=== PATIENT | female | born 1985 | race Two or more races ===

== ENCOUNTER 2021-12-13 07:30 | Observation (INO) | payer MEDICAID ==
[2021-12-13] MEDS ORDERED: PREN-96 PO (09:30)
[2021-12-13] MEDS ORDERED: ASPI1TAB20 PO (09:30)
== END 2021-12-13 10:21 | disposition home or self-care (01) ==
LOC: LDRP 08:06 → UNDOADMOB 08:08 → UNDODISOB 10:21
PROVIDERS: ADMIT Obstetrics & Gynecology; ATTEND Obstetrics & Gynecology
DX: O24.419 Gestational diabetes mellitus in pregnancy, unspecified control (principal); Z3A.30 30 weeks gestation of pregnancy; Z79.82 Long term (current) use of aspirin
CPT/HCPCS: 59025; 76818; 81002; 82948; 82962; 94760; G0378

== ENCOUNTER 2021-12-20 07:29 | Observation (INO) | payer MEDICAID ==
[~2021-12-20 07:29] MED LIST: ASPI1TAB20 PO; PREN-96 PO
== END 2021-12-20 09:49 | disposition home or self-care (01) ==
LOC: LDRP 08:06 → UNDOADMOB 08:46 → LDRP 08:46 → UNDODISOB 09:49
PROVIDERS: ADMIT Obstetrics & Gynecology; ATTEND Obstetrics & Gynecology
DX: O24.419 Gestational diabetes mellitus in pregnancy, unspecified control (principal); O62.9 Abnormality of forces of labor, unspecified; O26.893 Other specified pregnancy related conditions, third trimester; R10.30 Lower abdominal pain, unspecified; H53.8 Other visual disturbances; Z3A.31 31 weeks gestation of pregnancy
CPT/HCPCS: 59025; 76818; 81002; 82948; 82962; 94760; G0378

== ENCOUNTER 2021-12-27 08:17 | Observation (INO) | payer MEDICAID | END 2021-12-27 09:52 | disposition home or self-care (01) | LOC: UNDOADMOB 08:17 → LDRP 08:17 | PROVIDERS: ADMIT Obstetrics & Gynecology Obstetrics; ATTEND Obstetrics & Gynecology Obstetrics | DX: O24.419 Gestational diabetes mellitus in pregnancy, unspecified control (principal); Z3A.32 32 weeks gestation of pregnancy | CPT/HCPCS: 59025; 76818; 81002; 82948; 82962; 94760; G0378 ==

== ENCOUNTER 2022-01-03 08:05 | Observation (INO) | payer MEDICAID ==
[~2022-01-03] VITALS: Ht 157.5 cm; Wt 67.6 kg
== END 2022-01-03 09:32 | disposition home or self-care (01) ==
LOC: LDRP 08:05 → UNDOADMOB 08:05 → LDRP 08:41 → UNDODISOB 09:32
PROVIDERS: ADMIT Obstetrics & Gynecology; ATTEND Obstetrics & Gynecology
DX: O24.419 Gestational diabetes mellitus in pregnancy, unspecified control (principal); Z3A.33 33 weeks gestation of pregnancy
CPT/HCPCS: 59025; 76818; 81002; 82948; 82962; 94760; G0378

== ENCOUNTER 2022-01-10 08:28 | Observation (INO) | payer MEDICAID ==
[~2022-01-10] VITALS: Ht 157.5 cm; Wt 67.6 kg
== END 2022-01-10 09:58 | disposition home or self-care (01) ==
LOC: LDRP 08:28 → UNDOADMOB 08:28 → LDRP 08:31 → UNDODISOB 09:58
PROVIDERS: ADMIT Obstetrics & Gynecology; ATTEND Obstetrics & Gynecology
DX: O24.419 Gestational diabetes mellitus in pregnancy, unspecified control (principal); Z3A.34 34 weeks gestation of pregnancy
CPT/HCPCS: 59025; 76818; 81002; 82962; 94760; G0378

== ENCOUNTER 2022-01-17 08:12 | Observation (INO) | payer MEDICAID | END 2022-01-17 10:07 | disposition home or self-care (01) | LOC: LDRP 08:12 → UNDOADMOB 08:12 → LDRP 08:56 → UNDODISOB 10:07 | PROVIDERS: ADMIT Obstetrics & Gynecology; ATTEND Obstetrics & Gynecology | DX: O24.419 Gestational diabetes mellitus in pregnancy, unspecified control (principal); Z3A.35 35 weeks gestation of pregnancy; Z79.82 Long term (current) use of aspirin | CPT/HCPCS: 59025; 76818; 81002; 82948; 82962; G0378 ==

== ENCOUNTER 2022-01-24 08:05 | Observation (INO) | payer MEDICAID | END 2022-01-24 09:45 | disposition home or self-care (01) | LOC: LDRP 08:05 → UNDOADMOB 08:05 → LDRP 08:38 → UNDODISOB 09:45 | PROVIDERS: ADMIT Obstetrics & Gynecology; ATTEND Obstetrics & Gynecology | DX: O24.419 Gestational diabetes mellitus in pregnancy, unspecified control (principal); Z3A.36 36 weeks gestation of pregnancy | CPT/HCPCS: 59025; 76818; 81002; 82948; 82962; 94760; G0378 ==

== ENCOUNTER 2022-01-31 08:06 | Observation (INO) | payer MEDICAID | END 2022-01-31 09:22 | disposition home or self-care (01) | LOC: LDRP 08:06 → UNDOADMOB 08:06 → LDRP 08:31 → UNDODISOB 09:22 | PROVIDERS: ADMIT Obstetrics & Gynecology; ATTEND Obstetrics & Gynecology | DX: O24.419 Gestational diabetes mellitus in pregnancy, unspecified control (principal); Z3A.37 37 weeks gestation of pregnancy | CPT/HCPCS: 59025; 76818; 81002; 82948; 82962; 94760; G0378 ==

== ENCOUNTER 2022-02-07 08:09 | Observation (INO) | payer MEDICAID | END 2022-02-07 09:18 | disposition home or self-care (01) | LOC: LDRP 08:09 → UNDOADMOB 08:09 → LDRP 08:44 → UNDODISOB 09:18 | PROVIDERS: ADMIT Obstetrics & Gynecology; ATTEND Obstetrics & Gynecology | DX: O24.419 Gestational diabetes mellitus in pregnancy, unspecified control (principal); Z3A.38 38 weeks gestation of pregnancy; Z91.040 Latex allergy status | CPT/HCPCS: 59025; 76818; 81002; 82948; 82962; 94760; G0378 ==

== ENCOUNTER 2022-02-08 15:00 | Inpatient (IN) | payer MEDICAID ==
[~2022-02-08] VITALS: Ht 154.9 cm; Wt 69.4 kg
[2022-02-08 18:38] LABS: Basophils # (auto) 0.1 10 ^3/uL (0-0.2); Basophils % (auto) 0.9 % (0.0-2.0); Eosinophils # (auto) 0 10 ^3/uL (0-0.8); Eosinophils % (auto) 0.6 % (0.0-7.0); Hematocrit 37.9 % (36.0-46.0); Hemoglobin 12.4 g/dL (12.2-16.2); Lymphocytes # (auto) 1.4 10 ^3/uL (0.4-5.4); Lymphocytes % (auto) 18.6 % (10.0-50.0); Mean Corpuscular Hemoglobin 27.6 pg (28.0-32.0); Mean Corpuscular Hgb Conc. 32.7 g/dL (32.0-36.0); Mean Corpuscular Volume 84.3 fL (80.0-100.0); Monocytes # (auto) 0.5 10 ^3/uL (0-1.3); Neutrophils # (auto) 5.7 10 ^3/uL (1.6-8.6); Neutrophils % (auto) 73.9 % (37.0-80.0); Nucleated Red Blood Cells % 0.1 %; Red Cell Distribution Width 14.4 % (11.8-14.3); White Blood Cell 7.7 10^3/uL (4.4-10.8)
[2022-02-08 18:55] LABS: INR 0.87 (0.9-1.15); Partial Thromboplastin Time 27.9 sec (24.6-33.4)
[2022-02-08 19:04] LABS: Albumin 2.7 g/dL (3.4-5.0); BUN/Creatinine Ratio 13.6; Potassium 4.7 mmol/L (3.5-5.1); Total Protein 6.9 g/dL (6.4-8.2); Uric Acid 5.4 mg/dL (2.6-6.0)
[2022-02-08 19:08] LABS: Bilirubin, Total 0.3 mg/dL (0.2-1.0)
[2022-02-08] MEDS ORDERED: BUTORPHANOL TARTRATE 2 MG/1 ML VIAL IV PRN ×2 (19:15)
[2022-02-08] MEDS ORDERED: PROMETHAZINE HCL 25 MG/ML 1ML IV PRN (19:15)
[2022-02-08] MEDS ORDERED: LIDOCAINE 2%HCL (LOCAL ANESTH.) INJ 10ml MDV IJ PRN (19:15)
[2022-02-08 19:41] LABS: Urine Bacteria MANY /hpf (None Seen); Urine Blood 1+ /uL (Negative); Urine Specific Gravity 1.004 (1.001-1.035); Urine WBC 3 /hpf (0 - 5)
[2022-02-08 20:09] LABS: Amphetamine Screen, Urine NEGATIVE (NEGATIVE); Barbiturate Scree,Urine NEGATIVE (NEGATIVE); Benzodiazephine Screen, Urine NEGATIVE (NEGATIVE); Cannabinoid Screen, Urine NEGATIVE (NEGATIVE); Cocaine Screen, Urine NEGATIVE (NEGATIVE); Creatinine, Urine 27 mg/dL (30.0-125.0); Opiate Scree,Urine NEGATIVE (NEGATIVE); Phencyclidine Screen, Urine NEGATIVE (NEGATIVE); Protein, Urine 14.9 mg/dL (0.0-11.9)
[2022-02-08] MEDS: WITCH HAZEL-GLYCERIN PAD TOP PRN (20:45)
[2022-02-08] MEDS: DERMOPLAST 60ML BOTTLE TOP PRN (20:45)
[2022-02-08] MEDS: miSOPROStol 50 MCG per PRE-CUT 1/2 TAB PO PRN (20:46)
[2022-02-08] MEDS: PHISODERM TOP SOLN 240ML BTL TOP PRN (20:46)
[2022-02-08] MEDS: LACTATED RINGER'S 1,000 ML IV SCH (20:48)
[2022-02-08] MEDS ORDERED: ACCU-CHEK COMFORT CURVE STRIP VI SCH (22:00)
[2022-02-08] MEDS ORDERED: hydrALAZINE HCL 20 MG/ML VL IV PRN (22:30)
[2022-02-09] MEDS: miSOPROStol 50 MCG per PRE-CUT 1/2 TAB PO PRN ×2 (00:55→05:11)
[2022-02-09] MEDS: LACTATED RINGER'S 1,000 ML IV SCH ×2 (05:12→08:20)
[2022-02-09] MEDS ORDERED: NALBUPHINE HCL 10 MG/1ml INJECTION IV ONE (07:00)
[2022-02-09] MEDS ORDERED: ROPIVACAINE HCL 200 ML EPI STA (07:16)
[2022-02-09] MEDS ORDERED: ePHEDrine SULFATE 50 MG/ML AMP IV STA (07:16)
[2022-02-09] MEDS ORDERED: fentaNYL CITRATE 100 MCG/2 ML VL IV ONE (07:30)
[2022-02-09] MEDS ORDERED: NALOXONE HCL 0.4 MG/ML VIAL IV ONE (07:30)
[2022-02-09] MEDS ORDERED: LACT. RINGERS/OXYTOCIN 20UNITS 1,000 ML IV SCH ×2 (07:30→17:00)
[2022-02-09] MEDS ORDERED: fentaNYL CITRATE 100 MCG/2 ML VL ONE (08:13)
[2022-02-09] MEDS: DERMOPLAST 60ML BOTTLE TOP PRN (08:20)
[2022-02-09] MEDS: WITCH HAZEL-GLYCERIN PAD TOP PRN (08:20)
[2022-02-09] MEDS: PHISODERM TOP SOLN 240ML BTL TOP PRN (08:20)
[2022-02-09] MEDS ORDERED: LACT. RINGERS/OXYTOCIN 20UNITS 500 ML IV ONE ×2 (09:00→09:30)
[2022-02-09] MEDS: ceFAZolin 1GM/50ML 50 ML IV SCH ×2 (09:25→16:51)
[2022-02-09] MEDS ORDERED: IBUP800T27 PO (16:48)
[2022-02-09] MEDS ORDERED: HYDR-4902 PO (16:48)
[2022-02-09] MEDS ORDERED: DOCU-94 PO (16:48)
[2022-02-09] MEDS ORDERED: LIDOCAINE HCL 2 %PF INJ 10ML AMP IJ ONE (16:50)
[2022-02-09] MEDS ORDERED: SODIUM CITR/CITRIC ACID ORAL SOLN 30 ML ONE (16:50)
[2022-02-09] MEDS ORDERED: SODIUM CITR/CITRIC ACID ORAL SOLN 30 ML PO ONE (17:00)
[2022-02-09] MEDS ORDERED: ceFAZolin 1GM/50ML 50 ML IV SCH (17:00)
[2022-02-09] MEDS ORDERED: MORPHINE SULF PF 5 MG/10 ML VIAL ONE (17:43)
[2022-02-09] MEDS ORDERED: oxyTOCIN 10 UNIT/ML 10ML VIAL ONE (17:52)
[2022-02-09] MEDS ORDERED: ONDANSETRON HCL 4 MG/2 ML VIAL ONE (17:52)
[2022-02-09] MEDS ORDERED: HYDROmorphone HCL 2 MG/ML VL/or syr IV PRN (18:00)
[2022-02-09] MEDS ORDERED: NALOXONE HCL 0.4 MG/ML VIAL IV PRN (18:00)
[2022-02-09] MEDS ORDERED: DexAMETHasone SOD PHOS 10MG/1ML VIAL INJ IV PRN (18:00)
[2022-02-09] MEDS ORDERED: diphenhdrAMINE HCL 50 MG/1 ML VL IV PRN (18:00)
[2022-02-09] MEDS ORDERED: NALBUPHINE HCL 10 MG/1ml INJECTION SUBCUT ONE (18:00)
[2022-02-09] MEDS ORDERED: ONDANSETRON HCL 4 MG/2 ML VIAL IV PRN (18:00)
[2022-02-09 19:00] VITALS: BP 146/93
[2022-02-09 20:00] VITALS: BP 141/86
[2022-02-09 21:00] VITALS: BP 142/83
[2022-02-09 22:00] VITALS: BP 142/85
[2022-02-09 23:00] VITALS: BP 145/84
[2022-02-09] MEDS: KETOROLAC TROMETH 30 MG/ML 1ML VIAL IV PRN (23:09)
[2022-02-09 23:30] VITALS: BP 145/84
[2022-02-09 23:54] LABS: Basophils # (auto) 0 10 ^3/uL (0-0.2); Basophils % (auto) 0.1 % (0.0-2.0); Eosinophils # (auto) 0 10 ^3/uL (0-0.8); Hematocrit 32.1 % (36.0-46.0); Hemoglobin 10.6 g/dL (12.2-16.2); Lymphocytes # (auto) 0.9 10 ^3/uL (0.4-5.4); Lymphocytes % (auto) 7.1 % (10.0-50.0); Mean Corpuscular Hemoglobin 27.8 pg (28.0-32.0); Mean Corpuscular Hgb Conc. 32.9 g/dL (32.0-36.0); Mean Corpuscular Volume 84.4 fL (80.0-100.0); Monocytes # (auto) 0.7 10 ^3/uL (0-1.3); Monocytes % (auto) 5.4 % (0.0-12.0); Neutrophils # (auto) 11.1 10 ^3/uL (1.6-8.6); Neutrophils % (auto) 87.4 % (37.0-80.0); Nucleated Red Blood Cells % 0.1 %; Red Blood Cells 3.81 10^6/uL (4.0-5.20); Red Cell Distribution Width 14.7 % (11.8-14.3); White Blood Cell 12.7 10^3/uL (4.4-10.8)
[2022-02-10] VITALS (19 sets, daily range): BP systolic 119–136; BP diastolic 59–86
[2022-02-10] MEDS ORDERED: ceFAZolin 1GM/50ML 50 ML IV SCH ×2 (01:00→11:00)
[2022-02-10 07:25] LABS: Basophils # (auto) 0 10 ^3/uL (0-0.2); Basophils % (auto) 0.2 % (0.0-2.0); Eosinophils # (auto) 0 10 ^3/uL (0-0.8); Eosinophils % (auto) 0.2 % (0.0-7.0); Hematocrit 29.2 % (36.0-46.0); Hemoglobin 9.5 g/dL (12.2-16.2); Lymphocytes # (auto) 1.2 10 ^3/uL (0.4-5.4); Lymphocytes % (auto) 9.7 % (10.0-50.0); Mean Corpuscular Hemoglobin 27.6 pg (28.0-32.0); Mean Corpuscular Hgb Conc. 32.7 g/dL (32.0-36.0); Mean Corpuscular Volume 84.4 fL (80.0-100.0); Monocytes # (auto) 0.7 10 ^3/uL (0-1.3); Monocytes % (auto) 5.5 % (0.0-12.0); Neutrophils # (auto) 10.3 10 ^3/uL (1.6-8.6); Neutrophils % (auto) 84.4 % (37.0-80.0); Red Blood Cells 3.46 10^6/uL (4.0-5.20); Red Cell Distribution Width 14.5 % (11.8-14.3); White Blood Cell 12.2 10^3/uL (4.4-10.8)
[2022-02-10 08:06] LABS: RPR Non Reactive (Non Reactive)
[2022-02-10] MEDS: LACTATED RINGER'S 1,000 ML IV SCH (11:15)
[2022-02-10] MEDS: KETOROLAC TROMETH 30 MG/ML 1ML VIAL IV PRN (16:54)
[2022-02-10] MEDS ORDERED: BISACODYL 10 MG RECT SUPP PR PRN (17:00)
[2022-02-10] MEDS: SIMETHICONE 80 MG CHEWABLE TABLET PO SCH ×2 (18:30→22:39)
[2022-02-10] MEDS ORDERED: ceFAZolin 1GM/50ML 50 ML IV ONE (19:00)
[2022-02-10] MEDS: FERROUS SULFATE 325mg EC TAB PO SCH (22:40)
[2022-02-10] MEDS: DOCUSATE SOD 100 MG CAP PO SCH (22:40)
[2022-02-11 02:30] VITALS: BP 142/99
[2022-02-11] MEDS: HYDROcodone-ACET 5/325MG TAB PO PRN ×2 (03:09→11:54)
[2022-02-11 07:00] VITALS: BP 120/89
[2022-02-11] MEDS: FERROUS SULFATE 325mg EC TAB PO SCH ×2 (08:03→23:20)
[2022-02-11] MEDS: DOCUSATE SOD 100 MG CAP PO SCH ×2 (08:03→23:20)
[2022-02-11] MEDS: IBUPROFEN 800 MG TAB PO PRN ×2 (08:04→19:05)
[2022-02-11] MEDS ORDERED: DOCUSATE CALCIUM 240 MG CAP PO SCH (10:00)
[2022-02-11] MEDS: SIMETHICONE 80 MG CHEWABLE TABLET PO SCH ×4 (11:54→22:00)
[2022-02-11 19:02] VITALS: BP 142/80
[2022-02-11 23:07] VITALS: BP 156/92
[2022-02-12] MEDS: HYDROcodone-ACET 5/325MG TAB PO PRN ×2 (00:56→05:48)
[2022-02-12 03:07] VITALS: BP 151/94
[2022-02-12] MEDS: SIMETHICONE 80 MG CHEWABLE TABLET PO SCH (05:48)
[2022-02-12 07:01] VITALS: BP 142/80
[2022-02-12 10:50] VITALS: BP 139/79
== END 2022-02-12 09:58 | disposition home or self-care (01) | DRG 540 ==
LOC: LDRP 15:00 → UNDOADMOB 15:00 → LDRP 15:43 → OBSVTOIN 19:05 → LDRP 19:16
PROVIDERS: ADMIT Obstetrics & Gynecology; ATTEND Obstetrics & Gynecology
PROC: 10D00Z1 Extraction of Products of Conception, Low, Open Approach (ICD-10-PCS; principal; 2022-02-09 16:59)
DX: O13.4 Gestational [pregnancy-induced] hypertension without significant proteinuria, complicating childbirth (principal); O60.23X0 Term delivery with preterm labor, third trimester, not applicable or unspecified; O24.429 Gestational diabetes mellitus in childbirth, unspecified control; O69.81X0 Labor and delivery complicated by cord around neck, without compression, not applicable or unspecified; O76 Abnormality in fetal heart rate and rhythm complicating labor and delivery; Z37.0 Single live birth; Z3A.38 38 weeks gestation of pregnancy; Z20.822 Contact with and (suspected) exposure to COVID-19
CPT/HCPCS: 36415; 59025; 62282; 76818; 80053; 80307; 81001; 81002; 82570; 82948; 82962; 84112; 84156; 84550; 85025; 85610; 85730; 86592; 86850; 86900; 86901; 87426; 94760; 94762; 96360; 96361; 96365; 96366; G0378; J0690; J1885; J2405; J2590

== ENCOUNTER 2024-04-14 12:05 | Observation (INO) | payer BC, MEDICAID ==
[~2024-04-14 12:05] MED LIST changes: +DOCU-94 PO; +HYDR-4902 PO; +IBUP-1456 PO
--- NOTE | 2024-04-14 13:05 | DVH ---
BIOPHYSICAL PROFILE HISTORY: GDM TECHNIQUE: Multiple transabdominal real-time grayscale sonographic images through the gravid uterus of the fetus with duplex Doppler color flow and M-mode spectral analysis FINDINGS: BIOPHYSICAL PROFILE: breathing score: 2 movement score: 2 tone score: 2 Quantitative NISHA score: 2 (NISHA: 12.7 Cm.) Total score: 8 The cervix not well visualized. Single live fetus in cephalic presentation. heart rate 145 beats per minute. Anterior placenta without previa or abruption IMPRESSION: Biophysical profile score: 8
--- NOTE | 2024-04-14 13:21 | DVHDS2 ---
Physician Discharge Progress N Final Diagnosis: GDMA1 Secondary Diagnosis: Encounter for surveillance Operations or Procedures: Operations or Procedures NST/BPP/ NISHA Accucheck, ALL WNL Condition on Discharge: Stable Disposition: Home Discharge Instructions: Activity: Light activity Follow Up/Referral: as scheduled Medications: N/A Follow Up Care: Discharge Statement: "Patient was advised to return to the ER or call 911 if any headaches, dizziness, shortness of breath, chest pain, abdominal pain, bleeding, fevers, or worsening of medical condition. Patient was counseled about treatment plan, medications, possible side effects, patientverbalized understanding. All questions were answered to the best of my ability. This discharge took greater then 30 minutes in planning, reviewing documentation, counseling the patient, and discussing with other team members." JEAN CARLOS MCCANN DO Apr 14, 2024 13:21
== END 2024-04-14 13:29 | disposition home or self-care (01) ==
LOC: LDRP 12:05
PROVIDERS: ADMIT Obstetrics & Gynecology; ATTEND Obstetrics & Gynecology
DX: O24.419 Gestational diabetes mellitus in pregnancy, unspecified control (principal); Z98.890 Other specified postprocedural states; Z79.899 Other long term (current) drug therapy; Z3A.33 33 weeks gestation of pregnancy
CPT/HCPCS: 59025; 76818; 81002; 82948; 82962; 94760; G0378

== ENCOUNTER 2024-04-23 14:08 | Observation (INO) | payer MEDICAID ==
--- NOTE | 2024-04-23 15:20 | DVHDS2 ---
Physician Discharge Progress N Final Diagnosis: testing for GDM, A1 Operations or Procedures: Operations or Procedures 38yo IUP@35.0wks, +FM, denies LOF/VB/UCs VSS UA wnl NST reactive BPP wnl FKC/PTL precautions reviewed Laboratory Tests Test 04/23/24 14:55 Range/Units POC Glucose 91 70-106 mg/dl Condition on Discharge: Stable Disposition: Home Discharge Instructions: Diet: Consistent carbohydrate Activity: No Restrictions, As Tolerated Medications: see med list Follow Up Care: Specialist: f/u in 1 wk Discharge Statement: "Patient was advised to return to the ER or call 911 if any headaches, dizziness, shortness of breath, chest pain, abdominal pain, bleeding, fevers, or worsening of medical condition. Patient was counseled about treatment plan, medications, possible side effects, patientverbalized understanding. All questions were answered to the best of my ability. This discharge took greater then 30 minutes in planning, reviewing documentation, counseling the patient, and discussing with other team members." CARLOS MARTÍNEZ CNM Apr 23, 2024 15:20
--- NOTE | 2024-04-23 15:29 | DVH ---
CLINICAL HISTORY: Gestational diabetes. COMPARISON: US BIOPHYSICAL PROFILE on DOS: 04/14/24, BIOPHYSICAL PROFILE on DOS: 02/08/22, BPP on DOS: 02/08/22 TECHNIQUE: biophysical profile was performed. Transabdominal sonographic images of the fetus we re obtained. FINDINGS: The fetus is in cephalic position. heart rate measures 158 BPM. Amniotic fluid index measures 13.9 cm. The placenta is anterior in position. No placenta previa or abruption seen. Umbilic al cord appears to course partially around the neck, although not demonstrated to completely en [place] the neck. BPP profile is an overall score of 8/8, with 2/2 points for breathing, with at least one episode of breathing over a 30 second duration during a 30 minute observation, 2/2 points for m ovements, with 3 or more discrete body or limb movements, 2/2 points for tone, with one or more episodes of extremity extension with return to flexion, or opening and closing of hand, and 2/ 2 points for amniotic fluid, with at least 1 pocket of amniotic fluid that measures 2 cm in 2 perpend icular planes. IMPRESSION: 1. BPP score of 8/8. 2. Umbilical cord is wrapped partially around the neck, although does not completely encircle t he neck.
== END 2024-04-23 15:27 | disposition home or self-care (01) ==
LOC: LDRP 14:08 → UNDOADMOB 14:08 → LDRP 14:17
PROVIDERS: ADMIT Obstetrics & Gynecology; ATTEND Obstetrics & Gynecology
DX: O24.419 Gestational diabetes mellitus in pregnancy, unspecified control (principal); Z98.890 Other specified postprocedural states; Z79.899 Other long term (current) drug therapy; Z3A.35 35 weeks gestation of pregnancy
CPT/HCPCS: 59025; 76818; 81002; 82948; 82962; 94760; G0378

== ENCOUNTER 2024-04-30 16:13 | Observation (INO) | payer MEDICAID ==
[~2024-04-30] VITALS: Ht 157.5 cm; Wt 67.1 kg
[2024-04-30] MEDS: NIFEdipine 10 MG CAP PO ONE (17:14)
[2024-04-30] MEDS: TERBUTALINE SULFATE 1 MG/ML 1ML VIAL SC SCH (17:15)
--- NOTE | 2024-04-30 17:35 | DVH ---
BIOPHYSICAL PROFILE HISTORY: GDMA1 TECHNIQUE: Multiple transabdominal real-time grayscale sonographic images through the gravid uterus of the fetus with duplex Doppler color flow and M-mode spectral analysis Comparison: 04/23/2024 FINDINGS: BIOPHYSICAL PROFILE: breathing score: 2 movement score: 2 tone score: 2 Quantitative NISHA score: 2 (NISHA: 12 Cm.) Total score: 8 The cervix is not well-visualized Single live fetus in cephalic presentation. heart rate 144 beats per minute. Anterior placenta without previa or abruption IMPRESSION: Biophysical profile score: 8 The umbilical cord wrapped around the neck and prior imaging is not demonstrated on the on the current provided images.
[2024-04-30] MEDS ORDERED: NIFE10CA52 PO (18:07)
--- NOTE | 2024-04-30 19:40 | DVHDS2 ---
Physician Discharge Progress N Final Diagnosis: PTL GDM, A1 previous C/S x1 Operations or Procedures: Operations or Procedures S: 38yo IUP@36.0wks here for NST/BPP for GDM, A1. Pt reports irregular waldemar mehta contractions for a couple days. +FM, denies UCs/VB/LOF/BROWNE/vision changes/RUQ pain. PNC with Dr. Ho. O: VSS NST reactive TOCO: initially q3-6 min with uterine irritability after treatment no UCs noted Procardia 10mg PO and SQ terbutaline x2 given 1L LR IV bolus given A: 38yo IUP@36.0wks PTL GDM, A1 previous C/S x1 P: D/C home FKC/PTL/Preeclampsia precautions reviewed. f/u Dr. Daniel is on 05/05/[address] Ho consulted, reports pt has a uterine window, ordered procardia 10mg PO and SQ terbutaline x3 PRN in triage then wants her to go home with rx for procardia 10mg q4hrs. Rx sent to pharmacy Other Interventions Other Interventions [place] [id number] Ph: [phone] DIAGNOSTIC IMAGING Diagnostic Imaging Report : [id number] Signed PATIENT: TRINO JACOB ACCT: [id number] UNIT: [id number] : 1985 LOC: [facility] ROOM / BED: TRIAGE3 / A AGE / SEX: 38 / F ADM STATUS: ADM IN SERVICE [id number] ORDERING PHYSICIAN: CARLOS MARTÍNEZ CNM PROCEDURE(s): BPP - BIOPHYSICAL PROFILE REASON: GDMA1 ORDER NUMBER(s): [id number], ACCESSION NUMBER(s): [id number] BIOPHYSICAL PROFILE HISTORY: GDMA1 TECHNIQUE: Multiple transabdominal real-time grayscale sonographic images through the gravid uterus of the fetus with duplex Doppler color flow and M-mode spectral analysis Comparison: 04/23/2024 FINDINGS: BIOPHYSICAL PROFILE: breathing score: 2 movement score: 2 tone score: 2 Quantitative NISHA score: 2 (NISHA: 12 Cm.) Total score: 8 The cervix is not well-visualized Single live fetus in cephalic presentation. heart rate 144 beats per minute. Anterior placenta without previa or abruption IMPRESSION: Biophysical profile score: 8 The umbilical cord wrapped around the neck and prior imaging is not demonstrated on the on the current provided images. ATED BY: BETSY CORBIN DO DICTATED DATE/TIME: 04/30/241731 SIGNED BY: BETSY CORBIN DO SIGNED DATE/TIME: 04/30/241731 CC: Condition on Discharge: Stable Disposition: Home Discharge Instructions: Diet: Consistent carbohydrate Activity: See Comment Activity comment: pelvic rest Medications: Rx sent for procardia 10mg q4hrs Follow Up Care: Specialist: f/u on sunday05/02/24 Discharge Statement: "Patient was advised to return to the ER or call 911 if any headaches, dizziness, shortness of breath, chest pain, abdominal pain, bleeding, fevers, or worsening of medical condition. Patient was counseled about treatment plan, medications, possible side effects, patientverbalized understanding. All questions were answered to the best of my ability. This discharge took greater then 30 minutes in planning, reviewing documentation, counseling the patient, and discussing with other team members." Visit Coding OBGYN Date of Service: Apr 30, 2024 Billing Provider: CARLOS MARTÍNEZ CNM RESTAURANT MANAGING PARTNER Common Visit Codes: [id number] OBS CARE (HIGH) CARLOS MARTÍNEZ CNM Apr 30, 2024 19:40
== END 2024-04-30 20:11 | disposition home or self-care (01) ==
LOC: UNDOADMOB 16:13 → LDRP 16:13 → UNDODISOB 20:11
PROVIDERS: ADMIT Obstetrics & Gynecology; ATTEND Obstetrics & Gynecology
DX: O24.419 Gestational diabetes mellitus in pregnancy, unspecified control (principal); O47.03 False labor before 37 completed weeks of gestation, third trimester; Z3A.36 36 weeks gestation of pregnancy; Z79.899 Other long term (current) drug therapy; Z98.891 History of uterine scar from previous surgery
CPT/HCPCS: 59025; 76818; 81002; 82948; 82962; 94760; 96360; 96361; 96372; G0378

== ENCOUNTER 2024-05-02 15:00 | Observation (INO) | payer MEDICAID ==
[~2024-05-02] VITALS: Ht 157.5 cm; Wt 68.0 kg
[~2024-05-02 15:00] MED LIST changes: -DOCU-94 PO; -HYDR-4902 PO; -IBUP-1456 PO; +NIFE10CA52 PO
--- NOTE | 2024-05-02 15:30 | DVHDS2 ---
Physician Discharge Progress N Final Diagnosis: GDMA1 Operations or Procedures: Operations or Procedures NST/BPP NISHA Condition on Discharge: Stable Disposition: Home Discharge Instructions: Diet: Consistent carbohydrate Activity: Light activity Follow Up/Referral: as scheduled Medications: N/A Follow Up Care: Discharge Statement: "Patient was advised to return to the ER or call 911 if any headaches, dizziness, shortness of breath, chest pain, abdominal pain, bleeding, fevers, or worsening of medical condition. Patient was counseled about treatment plan, medications, possible side effects, patientverbalized understanding. All questions were answered to the best of my ability. This discharge took greater then 30 minutes in planning, reviewing docu mentation, counseling the patient, and discussing with other team members." Visit Coding OBGYN Date of Service: May 02, 2024 Billing Provider: JEAN CARLOS MCCANN DO CRUSHER SETTER Common Visit Codes: 97050-ELL/OBS SAME DATE (MOD) CRUSHER SETTER Procedure Codes: 93133-42- NON-STRESS TEST JEAN CARLOS MCCANN DO May 02, 2024 15:30
--- NOTE | 2024-05-02 16:21 | DVH ---
BIOPHYSICAL PROFILE HISTORY: GDMA1 TECHNIQUE: Multiple transabdominal real-time grayscale sonographic images through the gravid uterus of the fetus with duplex Doppler color flow and M-mode spectral analysis Comparison: Multiple prior studies, latest on 04/30/2024 FINDINGS: BIOPHYSICAL PROFILE: breathing score: 2 movement score: 2 tone score: 2 Quantitative NISHA score: 2 (NISHA: 11.2 Cm.) Total score: 8 The cervix well-visualized Single live fetus in cephalic presentation. heart rate 138 beats per minute. Anterior placenta without previa or abruption Single nuchal cord is demonstrated. IMPRESSION: Biophysical profile score: 8 Single nuchal cord is demonstrated.
== END 2024-05-02 16:21 | disposition home or self-care (01) ==
LOC: LDRP 15:00
PROVIDERS: ADMIT Obstetrics & Gynecology; ATTEND Obstetrics & Gynecology
DX: O24.410 Gestational diabetes mellitus in pregnancy, diet controlled (principal); Z3A.36 36 weeks gestation of pregnancy; Z79.899 Other long term (current) drug therapy; Z98.890 Other specified postprocedural states
CPT/HCPCS: 59025; 76818; 81002; 82948; 82962; 94760; G0378

== ENCOUNTER 2024-05-06 15:07 | Observation (INO) | payer MEDICAID ==
--- NOTE | 2024-05-06 16:15 | DVH ---
BIOPHYSICAL PROFILE HISTORY: GDMA1/UTERINE WINDOW TECHNIQUE: Multiple transabdominal real-time grayscale sonographic images through the gravid uterus of the fetus with duplex Doppler color flow and M-mode spectral analysis FINDINGS: BIOPHYSICAL PROFILE: breathing score: 2 movement score: 2 tone score: 2 Quantitative NISHA score: 2 (NISHA: 14 Cm.) Total score: 8 The cervix was not seen Single live fetus in cephalic presentation. heart rate 150 beats per minute. Grade II anterior placenta without previa or abruption IMPRESSION: Biophysical profile score: 8/8
--- NOTE | 2024-05-06 23:27 | DVHDS2 ---
Physician Discharge Progress N Final Diagnosis: testing for GDM, A1 and uterine window (prev. C/S) Operations or Procedures: Operations or Procedures 38yo IUP@36.6wks, +FM, denies UCs/LOF/VB, pt taking procardia until repeat c/s on Sunday05/13/[address] Ho. VSS NST reactive FKC/PTL precautions reviewed Dr. Ho consulted, agrees with poc. Other Interventions Other Interventions [place] [address] Ph: [phone] DIAGNOSTIC IMAGING Diagnostic Imaging Report : [id number] Signed PATIENT: TRINO JACOB ACCT: [id number] UNIT: [id number] : 1985 LOC: [facility] ROOM / BED: [facility] / AGE / SEX: 38 / F ADM STATUS: ADM IN SERVICE 5644 ORDERING PHYSICIAN: CARLOS MARTÍNEZ CNM PROCEDURE(s): BPP - BIOPHYSICAL PROFILE REASON: GDMA1/UTERINE WINDOW ORDER NUMBER(s): [id number], ACCESSION NUMBER(s): [id number] BIOPHYSICAL PROFILE HISTORY: GDMA1/UTERINE WINDOW TECHNIQUE: Multiple transabdominal real-time grayscale sonographic images through the gravid uterus of the fetus with duplex Doppler color flow and M-mode spectral analysis FINDINGS: BIOPHYSICAL PROFILE: breathing score: 2 movement score: 2 tone score: 2 Quantitative NISHA score: 2 (NISHA: 14 Cm.) Total score: 8 The cervix was not seen Single live fetus in cephalic presentation. heart rate 150 beats per minute. Grade II anterior placenta without previa or abruption IMPRESSION: Biophysical profile score: 8/8 ATED BY: BRET BRAGG MD DICTATED DATE/TIME: 05/06/241611 SIGNED BY: BRET BRAGG MD SIGNED DATE/TIME: 05/06/241611 CC: Condition on Discharge: Stable Disposition: Home Discharge Instructions: Diet: Consistent carbohydrate Activity: Light activity Medications: see med list Follow Up Care: Specialist: f/u in 3 days Discharge Statement: "Patient was advised to return to the ER or call 911 if any headaches, dizziness, shortness of breath, chest pain, abdominal pain, bleeding, fevers, or worsening of medical condition. Patient was counseled about treatment plan, medications, possible side effects, patientverbalized understanding. All questions were answered to the best of my ability. This discharge took greater then 30 minutes in planning, reviewing documentation, counseling the patient, and discussing with other team members." Visit Coding OBGYN Date of Service: May 06, 2024 Billing Provider: CARLOS MARTÍNEZ CNM FUR EXAMINER Common Visit Codes: [id number] OBS CARE (HIGH) CARLOS MARTÍNEZ CNM May 06, 2024 23:27
== END 2024-05-06 16:21 | disposition home or self-care (01) ==
LOC: LDRP 15:07 → UNDOADMOB 15:07 → LDRP 15:16 → UNDOADMOB 15:16 → LDRP 15:20 → UNDODISOB 16:21
PROVIDERS: ADMIT Obstetrics & Gynecology; ATTEND Obstetrics & Gynecology
DX: O24.419 Gestational diabetes mellitus in pregnancy, unspecified control (principal); O09.523 Supervision of elderly multigravida, third trimester; Z98.890 Other specified postprocedural states; Z79.899 Other long term (current) drug therapy; Z3A.36 36 weeks gestation of pregnancy
CPT/HCPCS: 59025; 76818; 81002; 82948; 82962; 94760; G0378

== ENCOUNTER 2024-05-09 07:05 | Observation (INO) | payer MEDICAID ==
[~2024-05-09 07:05] MED LIST changes: -ASPI1TAB20 PO
--- NOTE | 2024-05-09 16:02 | DVH ---
CLINICAL HISTORY: -induced hypertension. Uterine window. COMPARISON: US BIOPHYSICAL PROFILE on DOS: 05/06/24, US BIOPHYSICAL PROFILE on DOS: 05/02/24, US BIOPHYS ICAL PROFILE on DOS: 04/30/24 TECHNIQUE: biophysical profile was performed. Transabdominal sonographic images of the fetus we re obtained. FINDINGS: The fetus is in cephalic position. heart rate measures 144 BPM. Amniotic fluid index measures 13.5 cm. The placenta is anterior in position. The umbilical cord courses adjacent to the fe [place] neck, although not clearly seen wrapping all the way around the neck on these images. BPP profile is an overall score of 8/8, with 2/2 points for breathing, with at least one episode of breathing over a 30 second duration during a 30 minute observation, 2/2 points for m ovements, with 3 or more discrete body or limb movements, 2/2 points for tone, with one or more episodes of extremity extension with return to flexion, or opening and closing of hand, and 2/ 2 points for amniotic fluid, with at least 1 pocket of amniotic fluid that measures 2 cm in 2 perpend icular planes. IMPRESSION: 1. BPP score of 8/8. 2. Umbilical cord is seen adjacent to the neck, although not clearly demonstrated to be wrappin g all the way around the neck on these images. Possible nuchal cord.
--- NOTE | 2024-05-10 22:31 | DVHDS2 ---
Physician Discharge Progress N Final Diagnosis: gdm,ptl,previous csx1 Operations or Procedures: Operations or Procedures nst,sono 37wks Condition on Discharge: Good Disposition: Home Discharge Instructions: Diet: Regular Activity: No Restrictions, As Tolerated Medications: na Follow Up Care: Specialist: 3d Discharge Statement: "Patient was advised to return to the ER or call 911 if any headaches, dizziness, shortness of breath, chest pain, abdominal pain, bleeding, fevers, or worsening of medical condition. Patient was counseled about treatment plan, medications, possible side effects, patientverbalized understanding. All questions were answered to the best of my ability. This discharge took greater then 30 minutes in planning, reviewing documenta tion, counseling the patient, and discussing with other team members." Visit Coding OBGYN Date of Service: May 09, 2024 Billing Provider: MAYA ARIAS DO VP PACKAGING Common Visit Codes: 61133-IUC/OBS DISCH DAY >30MIN VP PACKAGING Procedure Codes: 59488-83- NON-STRESS TEST MAYA ARIAS DO May 10, 2024 22:31
== END 2024-05-09 16:22 | disposition home or self-care (01) ==
LOC: LDRP 15:11 → UNDOADMOB 15:11 → LDRP 15:15
PROVIDERS: ADMIT Obstetrics & Gynecology; ATTEND Obstetrics & Gynecology
DX: O60.03 Preterm labor without delivery, third trimester (principal); O24.419 Gestational diabetes mellitus in pregnancy, unspecified control; Z3A.37 37 weeks gestation of pregnancy; Z79.899 Other long term (current) drug therapy
CPT/HCPCS: 59025; 76818; 81002; 82948; 82962; 94760; G0378

== ENCOUNTER 2024-05-11 03:55 | Inpatient (IN) | payer MEDICAID ==
[~2024-05-11] VITALS: Ht 157.5 cm; Wt 68.0 kg
[2024-05-11 10:01] LABS: Basophils # (auto) 0 10 ^3/uL (0-0.2); Basophils % (auto) 0.7 % (0.0-2.0); Eosinophils # (auto) 0.1 10 ^3/uL (0-0.8); Eosinophils % (auto) 1.8 % (0.0-7.0); Hematocrit 36.7 % (36.0-46.0); Hemoglobin 12.3 g/dL (12.2-16.2); Lymphocytes # (auto) 0.8 10 ^3/uL (0.4-5.4); Mean Corpuscular Hemoglobin 28.8 pg (28.0-32.0); Mean Corpuscular Hgb Conc. 33.5 g/dL (32.0-36.0); Monocytes # (auto) 0.3 10 ^3/uL (0-1.3); Monocytes % (auto) 6.4 % (0.0-12.0); Neutrophils # (auto) 3.4 10 ^3/uL (1.6-8.6); Neutrophils % (auto) 73.1 % (37.0-80.0); Nucleated Red Blood Cells % 0.2 %; Platelet Count (auto) 255 10^3/uL (140-450); Red Blood Cells 4.26 10^6/uL (4.0-5.20); Red Cell Distribution Width 13.9 % (11.8-14.3); White Blood Cell 4.7 10^3/uL (4.4-10.8)
[2024-05-11 10:06] LABS: Urine Bacteria FEW /hpf (None Seen); Urine Blood Negative /uL (Negative); Urine Clarity Turbid (Clear); Urine Color Yellow (Yellow); Urine Protein, UAD TRACE (Negative); Urine Specific Gravity 1.019 (1.001-1.035); Urine Squamous Epithelial Cell MOD /hpf (<5); Urine Urobilinogen Normal (Negative); Urine WBC 1 /HPF (0-5); Urine pH 6.5 (5.0-9.0)
[2024-05-11 10:08] LABS: Albumin 4.2 g/dL (3.2-4.8); Anion Gap 8 (5-15); Aspartate Aminotransferase 26 U/L (13-40); BUN/Creatinine Ratio 13.3 (10.0-20.0); Calcium 9.4 mg/dL (8.7-10.4); Carbon Dioxide 24 mmol/L (20-31); Chloride 102 mmol/L (98-107); Glucose 97 mg/dL (74-106)
[2024-05-11 10:09] LABS: Bilirubin, Total 0.4 mg/dL (0.2-1.0); Total Protein 6.6 g/dL (5.7-8.2)
[2024-05-11 10:10] LABS: Amphetamine Screen, Urine Neg (NEGATIVE); Barbiturate Scree,Urine Neg (NEGATIVE); Benzodiazephine Screen, Urine Neg (NEGATIVE); Cannabinoid Screen, Urine Neg (NEGATIVE); Cocaine Screen, Urine Neg (NEGATIVE); Opiate Scree,Urine Neg (NEGATIVE); Phencyclidine Screen, Urine Neg (NEGATIVE)
[2024-05-11 10:11] LABS: Alanine Aminotransferase 42 U/L (7-40); Alkaline Phosphatase 164 U/L (46-116); Blood Urea Nitrogen 8 mg/dL (9-23); Sodium 134 mmol/L (136-145)
[2024-05-11 10:15] LABS: INR 0.93 (0.9-1.15); Partial Thromboplastin Time 27.7 SEC (24.5-34.5); Prothrombin Time 9.9 sec (9.3-11.8)
[2024-05-13] VITALS (17 sets, daily range): BP systolic 96–123; BP diastolic 61–78; PULSE 67–101; RESP 15–18; TEMP 98.1–98.4; O2SAT 94–99
--- NOTE | 2024-05-13 03:34 | DVHHP ---
ADMIT DATE: 05/11/2024 CHIEF COMPLAINT: Here for repeat section. HISTORY OF PRESENT ILLNESS: The patient is a 38-year-old 2, para 1 with EDC 05/28, estimated gestational age of 38+ weeks, admitted for repeat section. The patient has GDM A1 and she has advanced maternal age. Her patient had MRI to rule out for accreta, which revealed very thinned lower uterine segment. This findings were discussed with the perinatologist, Dr. Baker, who recommended early delivery due to possibility of lower uterine segment ruptured secondary to very thin lower uterine segment findings on MRI. The patient has also been edison. She was placed on Procardia. PAST MEDICAL HISTORY: None. PAST SURGICAL HISTORY: . SOCIAL HISTORY: None. FAMILY HISTORY: None. OBSTETRIC AND GYNECOLOGIC HISTORY: One section. REVIEW OF SYSTEMS: Consistent with HPI. PHYSICAL EXAMINATION: VITAL SIGNS: Stable, afebrile. HEENT: Within normal limits. CARDIOVASCULAR: Regular rate and rhythm. LUNGS: Clear to auscultation. BREASTS: Symmetrical. No masses. ABDOMEN: Gravid. Positive heart. PELVIC: 1 cm, soft, -3. EXTREMITIES: No clubbing, cyanosis or edema. IMPRESSION: * Intrauterine at 38 weeks with labor. Gestational diabetes mellitus GDM A1. * AMA. * Thinned out lower uterine segment at risk for uterine rupture. PLAN: Repeat section. Informed consent obtained. Risks, complication of surgery including infection, bleeding, hematoma formation, injury to bowel, bladder, surrounding organs, possibility of DVT, pulmonary embolism, risk of anesthesia, possibility of RDS in baby discussed with the patient. The patient fully understands. All questions answered. The patient wishes to proceed with planned procedure. DO BONI Torres TID: [id number] RECEIPT: [id number]
[2024-05-13] MEDS: LACTATED RINGER'S 1,000 ML IV ONE (04:52)
[2024-05-13] MEDS: LACTATED RINGER'S 1,000 ML IV SCH (05:35)
[2024-05-13] MEDS: InsuLIN REG 1unit/0.01ml Soln (100units/ml) SC ONE (06:39)
[2024-05-13] MEDS: ceFAZolin 2 GM/D5W50ml 50 ML IV ONE (06:41)
[2024-05-13] MEDS ORDERED: oxyTOCIN 10 UNIT/ML 10ML VIAL ONE (06:54)
[2024-05-13] MEDS ORDERED: MORPHINE SULF PF 5 MG/10 ML VIAL ONE (06:54)
[2024-05-13] MEDS ORDERED: ePHEDrine SULFATE 50 MG/ML AMP IV PRN (07:00)
[2024-05-13] MEDS ORDERED: GUM (CHEWING) 1 GUM CHEW CHEW ONE (07:00)
[2024-05-13] MEDS: ceFAZolin 1GM/50ML 50 ML IV SCH ×2 (07:05→14:58)
[2024-05-13] MEDS ORDERED: ePHEDrine SULFATE 50 MG/ML AMP ONE (07:13)
[2024-05-13] MEDS ORDERED: ONDANSETRON HCL 4 MG/2 ML VIAL ONE (07:16)
[2024-05-13] MEDS ORDERED: MIDAZOLAM HCL 2MG/2ML 2ml VIAL (1mg/ml) ONE (07:44)
[2024-05-13 08:07] LABS: RPR Non Reactive (Non Reactive)
[2024-05-13] MEDS ORDERED: ACETAMINOPHEN IV 1000 MG/100ML (10MG/ML) IV PRN (08:30)
[2024-05-13] MEDS ORDERED: ONDANSETRON HCL 4 MG/2 ML VIAL IV PRN (08:30)
[2024-05-13] MEDS ORDERED: KETOROLAC TROMETH 30 MG/ML 1ML VIAL IV PRN (08:30)
[2024-05-13] MEDS ORDERED: NALOXONE HCL 0.4 MG/ML VIAL IV PRN (08:30)
[2024-05-13] MEDS ORDERED: DexAMETHasone SOD PHOS 10MG/1ML VIAL INJ IV PRN (08:30)
[2024-05-13] MEDS ORDERED: HYDROmorphone HCL 2 MG/ML VL/or syr IV PRN ×2 (08:30)
[2024-05-13] MEDS ORDERED: diphenhdrAMINE HCL 50 MG/1 ML VL IV PRN (08:30)
[2024-05-13] MEDS ORDERED: MEPERIDINE HCL (25 MG/ML) 1ML VIAL IV PRN (08:30)
--- NOTE | 2024-05-13 09:12 | DVHOP2 ---
Operative Report DATE OF OPERATION:05/13/24 PREOPERATIVE DIAGNOSES: [iup at 38wks with ptl,previous cs x1,thinned out lower uterine segment at risk for uterine rupture,ama] POSTOPERATIVE DIAGNOSES: [same,nuchal cord] OPERATION PERFORMED: Repeat Section FINDINGS: [f] . Apgars of [8] and [9]. Weight [good] crying tone. [clear] amniotic fluid. Placenta and three-vessel were intact. Normal tubes, ovaries, and uterus. thinned out lower uterine segment c/w window SURGEON: Megha Ho D.O. GROUP EXERCISE MANAGER: crystal growing technician, [chris]. ANESTHESIOLOGIST: Carmelita abdi ANESTHESIA: [Duramorph spinal, regional]. COMPLICATIONS: [none]. ESTIMATED BLOOD LOSS: [500] mL. BLOOD PRODUCTS USED: [none]. PROCEDURE IN DETAIL: The patient was taken to the operating room, placed in sitting position, and spinal was placed without difficulty. She was then prepped and draped in a sterile fashion. A low Pfannenstiel incision was made scapel. At this point, it was carried down through the rectus fascia, nicked in the midline, and carried laterally. The rectus muscles were in the midline. Peritoneum was identified and entered with sharp dissection. Vesicouterine peritoneum was taken off the lower uterine segment. A lower uterine transverse incision was made with a scalpel down the chorionic membranes, ruptured with hemostat. was in vertex position. One hand was placed in the lower uterine segment. Head was essentially delivered spontaneously. Nose and mouth were bulb suctioned. Shoulders and torso were delivered without difficulty. Again, pharynx, nose, and mouth were re-suctioned with vigorous crying tone. Cord was cut. The was handed off to the awaiting Respiratory. At this point, umbilical blood sample was taken. Placenta was removed. Uterus was exteriorized, cleared off all clots and debris, irrigated, and closed with a double layer of 0-Vicryl. The vesicouterine peritoneum was incorporated into this closure. We had complete hemostasis. EBL was [500] mL. The instrument, lap, and sponge count was correct x1. The uterus was placed back into the peritoneum. The peritoneal cavity was re-inspected and the lower uterine incision with good hemostasis. We closed the peritoneum with running continuous of 2-0 Vicryl. The Rectus Fascia was closed with 0-PDS, running continuous, looped-0. The skin was closed undermined, irrigated, and close with jessie. CONDITION: The patient's and the infant's condition is stable and but guarded. Visit Coding OBGYN Date of Service: May 13, 2024 Billing Provider: MEGHA HO DO SECURITY RISK ANALYST Common Visit Codes: 59566-SNREVIT OBS CARE (HIGH) SECURITY RISK ANALYST Procedure Codes: [id number] DELIVERY ONLY MEGHA HO DO May 13, 2024 09:12
--- NOTE | 2024-05-13 09:21 | POSTOP ---
Post-Operative Note Post-Operative Note Preop Diagnosis iup at 38wks w/ptl,at risk for uterine rupture,previous csx1,ama Postop Diagnosis: same,nuchal cord Operation performed rcs Specimen baby girl,apgars 8-9,uterine wimndow noted Anesthesia: Regional Anesthesiologist: chris Blood Loss(fluid mgmt) 500ml Surgeon Maya Ho Conductor Pullman chris Implant na Complications & Mgmt none Date 05/13/24 Time 09:12 Visit Coding OBGYN Date of Service: May 13, 2024 Billing Provider: MAYA HO DO PLAYERS ASSISTANT Common Visit Codes: 90616-MQA/OBS SAME DATE (HIGH) PLAYERS ASSISTANT Procedure Codes: [id number] DELIVERY ONLY MAYA HO DO May 13, 2024 09:21
[2024-05-13] MEDS: ONDANSETRON HCL 4 MG/2 ML VIAL IV PRN (10:03)
[2024-05-13] MEDS: ACETAMINOPHEN IV 1000 MG/100ML (10MG/ML) IV PRN (12:36)
[2024-05-13 21:43] LABS: Basophils # (auto) 0 10 ^3/uL (0-0.2); Basophils % (auto) 0.1 % (0.0-2.0); Eosinophils # (auto) 0 10 ^3/uL (0-0.8); Eosinophils % (auto) 0.3 % (0.0-7.0); Hematocrit 31.7 % (36.0-46.0); Hemoglobin 10.5 g/dL (12.2-16.2); Lymphocytes # (auto) 0.8 10 ^3/uL (0.4-5.4); Lymphocytes % (auto) 7.9 % (10.0-50.0); Mean Corpuscular Hemoglobin 28.7 pg (28.0-32.0); Mean Corpuscular Hgb Conc. 33.3 g/dL (32.0-36.0); Mean Corpuscular Volume 86.4 fL (80.0-100.0); Monocytes # (auto) 0.4 10 ^3/uL (0-1.3); Monocytes % (auto) 4.6 % (0.0-12.0); Neutrophils # (auto) 8.5 10 ^3/uL (1.6-8.6); Neutrophils % (auto) 87.1 % (37.0-80.0); Nucleated Red Blood Cells % 0.2 %; Platelet Count (auto) 222 10^3/uL (140-450); Red Blood Cells 3.66 10^6/uL (4.0-5.20); Red Cell Distribution Width 14.1 % (11.8-14.3); White Blood Cell 9.8 10^3/uL (4.4-10.8)
[2024-05-14] VITALS (12 sets, daily range): BP systolic 95–116; BP diastolic 54–83; PULSE 68–83; RESP 16–20; TEMP 97.9–98.6; O2SAT 95–100
--- NOTE | 2024-05-14 00:13 | DVHPN2 ---
Progress Note Date Seen: May 14, 2024 Subjective S: bleeding is less, eating food without issues, denies lightheaded/dizziness, pain well controlled with oral medications, roque catheter in place, passing flatus, no BM yet, ambulating well, well vital signs Vital Sign Date Time Temp Pulse Resp B/P (MAP) Pulse Ox O2 Delivery O2 Flow Rate FiO2 05/13/24 19:00 Room Air 05/13/24 17:45 69 95 05/13/24 09:30 0.0 05/13/24 08:45 16 05/13/24 08:35 96/60 (72) 05/13/24 08:15 98 05/13/24 08:15 96.8 96.8 Total Intake and Output 05/13/24 05/13/24 05/14/24 15:00 23:00 07:00 Intake Total 50 ml Output Total 150 ml 250 ml Balance -100 ml -250 ml medications Current Medications Medications Dose Ordered Sig/Tiff Route Start Time Stop Time Status Last Admin Dose Admin Lactated Ringer's 1,000 ml @ 125 mls/hr Q8H IV 05/13/24 04:00 05/13/24 12:01 125 MLS/HR Ondansetron HCl 4 mg Q4HP PRN IV 05/13/24 07:00 05/13/24 10:03 4 MG Ephedrine Sulfate 10 mg [id number] PRN IV 05/13/24 07:00 05/14/24 06:59 Diphenhydramine HCl 25 mg Q4HP PRN IV 05/13/24 08:30 Ondansetron HCl 4 mg Q4HP PRN IV 05/13/24 08:30 Cancel Ketorolac Tromethamine 30 mg Q6HP PRN IV 05/13/24 08:30 05/18/24 08:29 Cefazolin Sodium 50 ml @ 100 mls/hr Q8H IV 05/13/24 15:00 05/14/24 07:29 05/13/24 23:29 100 MLS/HR Acetaminophen 1,000 mg Q8HPRN PRN IV 05/13/24 10:00 05/14/24 06:01 05/13/24 22:26 1,000 MG laboratory and microbiology Laboratory Tests 05/13/24 20:57 05/11/24 09:40 Test 05/11/24 09:40 Range/Units Serum Glucose 97 74-106 mg/dL Objective O: VSS Chest: heart sounds normal and lung sounds clear bilaterally Abd: soft, non-tender, fundus at U/firm/midline, active bowel sounds, no rebound or guarding Incision: sylke dressing open to air, clean/dry/intact Ext: Non-tender, No edema Lochia: minimal See lab results Problems(with codes): (1) S/P repeat low transverse (2) Precipitous drop in hematocrit Assessment/Plan A/P: 38yo now POD#1 s/p repeat -continue post op PP care Plan discussed with: Patient, Spouse Visit Coding OBGYN Date of Service: May 14, 2024 Billing Provider: CARLOS MARTÍNEZ CNM PIPE CLEANING MACHINE OPERATOR Common Visit Codes: [id number] INP/OBS CARE(HIGH) MEAGAN HORTON STUDENTMDW May 14, 2024 00:13
[2024-05-14] MEDS: SODIUM CITR/CITRIC ACID ORAL SOLN 30 ML PO ONE (06:46)
[2024-05-14] MEDS: METOCLOPRAMIDE HCL 5MG/ml INJ 2ml VIAL IV ONE (06:46)
[2024-05-14] MEDS: LACT. RINGERS/OXYTOCIN 20UNITS 1,000 ML IV ONE (06:46)
[2024-05-14] MEDS: ONDANSETRON HCL 4 MG/2 ML VIAL IV ONE (06:47)
[2024-05-14] MEDS: NALBUPHINE HCL 10 MG/1ml INJECTION SUBCUT ONE (06:47)
[2024-05-14] MEDS: HYDROcodone-ACET 5/325MG TAB PO PRN ×2 (07:22→17:30)
[2024-05-14 07:23] LABS: Basophils # (auto) 0 10 ^3/uL (0-0.2); Basophils % (auto) 0.3 % (0.0-2.0); Eosinophils # (auto) 0.1 10 ^3/uL (0-0.8); Eosinophils % (auto) 1.3 % (0.0-7.0); Hematocrit 31.9 % (36.0-46.0); Hemoglobin 10.5 g/dL (12.2-16.2); Lymphocytes % (auto) 11.1 % (10.0-50.0); Mean Corpuscular Hemoglobin 28.5 pg (28.0-32.0); Mean Corpuscular Hgb Conc. 33.1 g/dL (32.0-36.0); Mean Corpuscular Volume 86.2 fL (80.0-100.0); Monocytes # (auto) 0.5 10 ^3/uL (0-1.3); Monocytes % (auto) 5.4 % (0.0-12.0); Neutrophils % (auto) 81.9 % (37.0-80.0); Platelet Count (auto) 228 10^3/uL (140-450); Red Cell Distribution Width 14.1 % (11.8-14.3); White Blood Cell 8.6 10^3/uL (4.4-10.8)
[2024-05-14] MEDS: DOCUSATE SOD 100 MG CAP PO SCH (09:53)
[2024-05-14] MEDS ORDERED: DOCUSATE CALCIUM 240 MG CAP PO SCH (10:00)
[2024-05-14 11:07] LABS: Treponema Pallidum Ab LC Non Reactive (Non Reactive)
[2024-05-14] MEDS: IBUPROFEN 800 MG TAB PO PRN (11:42)
[2024-05-14] MEDS: SIMETHICONE 80 MG CHEWABLE TABLET PO SCH (12:43)
[2024-05-14] MEDS ORDERED: IBUP-1455 PO (22:50)
[2024-05-14] MEDS ORDERED: FERR325T24 PO (22:50)
[2024-05-14] MEDS ORDERED: HYDR-4902 PO (22:50)
[2024-05-14] MEDS ORDERED: DOCU-265 PO (22:50)
--- NOTE | 2024-05-15 00:33 | DVHPN2 ---
Progress Note Date Seen: May 15, 2024 Subjective bleeding is less, eating food without issues, denies lightheaded/dizziness, pain well controlled with oral medications, no concerns with urinating, passing flatus, no BM yet, ambulating well, well vital signs Vital Sign Date Time Temp Pulse Resp B/P (MAP) Pulse Ox O2 Delivery O2 Flow Rate FiO2 05/14/24 22:35 98.5 72 16 102/67 (79) 95 98.5 05/14/24 18:49 Room Air 05/13/24 09:30 0.0 05/13/24 08:15 98 Total Intake and Output 05/14/24 05/14/24 05/15/24 15:00 23:00 07:00 Output Total 875 ml Balance -875 ml medications Current Medications Medications Dose Ordered Sig/Tiff Route Start Time Stop Time Status Last Admin Dose Admin Lactated Ringer's 1,000 ml @ 125 mls/hr Q8H IV 05/13/24 04:00 05/14/24 05:26 125 MLS/HR Ondansetron HCl 4 mg Q4HP PRN IV 05/13/24 07:00 05/13/24 10:03 4 MG Diphenhydramine HCl 25 mg Q4HP PRN IV 05/13/24 08:30 Ondansetron HCl 4 mg Q4HP PRN IV 05/13/24 08:30 Cancel Docusate Sodium 100 mg Q12HR PO 05/14/24 10:00 05/14/24 21:32 100 MG Dimethicone 80 mg QID PO 05/14/24 12:00 05/14/24 21:32 80 MG Ibuprofen 800 mg Q8HP PRN PO 05/14/24 07:00 05/14/24 11:42 800 MG Acetaminophen/ Hydrocodone Bitart 1 tab Q4HPRN PRN PO 05/14/24 07:00 05/14/24 21:33 1 TAB Acetaminophen/ Hydrocodone Bitart 2 tab Q4HPRN PRN PO 05/14/24 07:00 05/14/24 07:22 2 TAB laboratory and microbiology Laboratory Tests 05/14/24 06:20 05/11/24 09:40 Test 05/11/24 09:40 Range/Units Serum Glucose 97 74-106 mg/dL Objective VSS Chest: heart sounds normal and lung sounds clear bilaterally Abd: soft, non-tender, fundus at U/firm/midline, active bowel sounds, no rebound or guarding Incision: sylke dressing open to air, clean/dry/intact Ext: Non-tender, No edema, 2+ BLE DTRs Lochia: minimal See lab results Problems(with codes): (1) S/P repeat low transverse (2) Precipitous drop in hematocrit Assessment/Plan 38yo now PPD#2 s/p repeat Rh+ Rubella Immune with supplemental bottlefeeding Pain control with PO medications Bowel regimen P: D/C home today Rx sent to pharmacy precautions and preeclampsia warning signs reviewed F/U with [facility] office in 1 week Plan discussed with: Patient, Spouse Visit Coding OBGYN Date of Service: May 15, 2024 Billing Provider: CARLOS MARTÍNEZ CNM MAIL [employer]IDER Common Visit Codes: [id number] INP/OBS CARE(HIGH) ESTRADA ROLAND MDWF May 15, 2024 00:33
--- NOTE | 2024-05-15 00:38 | DVHDS2 ---
Obstetrics Discharge Summary Obstetrics Discharge Summary Date of Admission: May 13, 2024 Date of Discharge: May 15, 2024 Reason For Admission: Section (Repeat) Procedures: NST Intrapartum Procedures: (low transverse) Procedures: Antibiotics, Hct/date: (05/14/24), Hgb/date: (05/14/24) Operative Complicat: None Discharge Diagnosis: Term -Delivered Discharge Information: Activity (as tolerated, no heavy lifting and nothing in the vagina for 6 weeks), Diet (Routine), Medications (rx sent), Instructions (Routine), Discharge to (Home), Accompanied by (), Discarge date (05/15/2024) Visit Coding OBGYN Date of Service: May 15, 2024 Billing Provider: CARLOS MARTÍNEZ CNM [employer] Common Visit Codes: 89208-COP/OBS DISCH DAY <30MIN ESTRADA ROLAND MDWF May 15, 2024 00:38
[2024-05-15 03:25] VITALS: BP 109/80; PULSE 80; RESP 14; TEMP 98.1; O2SAT 95
[2024-05-15 07:00] VITALS: BP 121/77; PULSE 70; RESP 16; TEMP 97.6; O2SAT 98
[2024-05-15 11:00] VITALS: BP 104/70; PULSE 74; RESP 18; TEMP 97.8; O2SAT 99
== END 2024-05-15 12:52 | disposition home or self-care (01) | DRG 540 ==
LOC: PREOBSVTOIN 03:55 → LDRP 05-13 03:53
PROVIDERS: ADMIT Obstetrics & Gynecology; ATTEND Obstetrics & Gynecology
PROC: 10D00Z1 Extraction of Products of Conception, Low, Open Approach (ICD-10-PCS; principal; 2024-05-13 07:01)
DX: O34.211 Maternal care for low transverse scar from previous cesarean delivery (principal); O60.14X0 Preterm labor third trimester with preterm delivery third trimester, not applicable or unspecified; O24.420 Gestational diabetes mellitus in childbirth, diet controlled; R71.0 Precipitous drop in hematocrit; O69.81X0 Labor and delivery complicated by cord around neck, without compression, not applicable or unspecified; Z3A.38 38 weeks gestation of pregnancy; Z37.0 Single live birth
CPT/HCPCS: 36415; 59025; 80053; 80307; 81001; 81002; 82948; 82962; 85025; 85610; 85730; 86592; 86780; 86803; 86850; 86900; 86901; 94760; 94762; 96360; 96361; 96365; 96366; G0378; J0131; J1815; J2250; J2405; J2590